=== PATIENT | male | born 1960 | race Caucasian/White ===

== ENCOUNTER 2021-03-21 18:06 | Outpatient (CLI) | payer OTHER, SELFPAY ==
[2021-03-21 18:22] VITALS: BP 147/87; PULSE 104; RESP 20; TEMP 36.8; O2SAT 94; BMI 43.8
[2021-03-21 19:13] VITALS: BP 147/87; PULSE 100; RESP 16; TEMP 37.1; O2SAT 92
[2021-03-21 20:05] VITALS: BP 124/98; PULSE 103; RESP 16; TEMP 37; O2SAT 92
== END 2021-03-21 20:12 | disposition home or self-care (01) ==
LOC: MS3OUT 18:06 → MS3 18:07
PROVIDERS: Referring Provider Nurse Practitioner Acute Care; Visit Provider Nurse Practitioner Acute Care
DX: Z23 Encounter for immunization (principal); U07.1 COVID-19; E11.9 Type 2 diabetes mellitus without complications; I10 Essential (primary) hypertension
CPT/HCPCS: J7050; M0245; Q0245